=== PATIENT | female | born 1990 | race Caucasian/White ===

== ENCOUNTER 2016-11-10 05:44 | Day surgery (SDC) | payer OTHER ==
[~2016-11-10] VITALS: Ht 154.9 cm; Wt 53.0 kg
[~2016-11-10 05:44] MED LIST: ACET500C5 PO; RANI150T5 PO
[2016-11-10 06:42] VITALS: Ht 154.9 cm; Wt 53.0 kg
[2016-11-10 07:18] VITALS: BP 110/63; PULSE 79; RESP 16
[2016-11-10] MEDS ORDERED: FENTAnyl 50 MCG/ML VIAL ONE (07:42)
[2016-11-10] MEDS ORDERED: MIDAZOLAM 1 MG/ML 2 ML INJ ONE (07:42)
[2016-11-10 08:00] VITALS: BP 98/63; PULSE 73; RESP 16
--- NOTE | 2016-11-10 23:57 | GILP ---
DATE OF PROCEDURE: NAME OF PROCEDURES: Esophagogastroduodenoscopy and biopsy. SURGEON: Talisha Bennett MD PREOPERATIVE DIAGNOSIS: Abdominal pain. POSTOPERATIVE DIAGNOSES: 1. Gastritis. 2. Gastric mucosal biopsies were taken for Helicobacter pylori test. INDICATION FOR THE PROCEDURE: Ms. Gela Camarillo is a 26-year-old female patient who had upper abdomin al pain, not responding to therapy. The patient was scheduled for endoscopic examination for furthe r evaluation. The procedure and possible complications are well explained to the patient. She understood and cons ented to the procedure. DESCRIPTION OF PROCEDURE: Under the influence of fentanyl and Versed, the gastroscope was carefully introduced into the esophagus and, under direct vision, it was advanced to the stomach and through the pylorus into the duodenal bulb and descending duodenum. FINDINGS: ESOPHAGUS: The mucosa was normal. STOMACH: The patient had gastritis. Gastric mucosal biopsies were taken for H. pylori test. DUODENUM: Normal. The patient tolerated the procedure very well and there was no complication from the procedure. At the end of the procedure, she was awake with stable vital signs and she was discharged home to the [facility] of her family. IMPRESSION: 1. Gastritis. 2. Gastric mucosal biopsies were taken for Helicobacter pylori test. PLAN: 1. Omeprazole 40 mg p.o. q.a.m. 2. Await H. pylori test report. Dictated By: TALISHA ALVAREZ/FREDY Conf#: [id number] DID#: [id number] CC: TALISHA BENNETT MD;*EndCC*
== END 2016-11-10 09:07 | disposition home or self-care (01) ==
LOC: GIL 05:44
PROVIDERS: ATTEND Internal Medicine Gastroenterology
DX: K29.70 Gastritis, unspecified, without bleeding (principal)
CPT/HCPCS: 43239; 87081; J2250; J3010; Z7610